=== PATIENT | female | born 1985 | race Caucasian/White ===

== ENCOUNTER 2019-11-16 08:57 | Outpatient (CLI) | payer OTHER, SELFPAY ==
[2019-11-16 09:20] LABS: Basophils Absolute Auto 0.03 K/mm3 (0.00-0.10); Basophils Percent Auto 0.4 % (0.0-1.0); Eosinophils Absolute Auto 0.04 K/mm3 (0.02-0.50); Eosinophils Percent Auto 0.6 % (1.0-6.0); Hematocrit 39.5 % (35.0-49.0); Hemoglobin 13.6 g/dL (12.0-15.0); Immature Granulocyte Absolute 0.02 K/mm3 (0.00-0.00); Immature Granulocyte Percent A 0.3 % (0.0-0.0); Lymphocytes Percent Auto 25.4 % (18.0-42.0); Mean Corpuscular HGB Conc 34.4 g/dL (32.0-36.0); Mean Corpuscular Hemoglobin 30.1 pg (27.0-31.0); Mean Corpuscular Volume 87.4 fL (78.0-102.0); Mean Platelet Volume 9.9 fl (9.2-11.8); Monocytes Absolute Auto 0.24 K/mm3 (0.10-0.90); Monocytes Percent Auto 3.6 % (2.0-11.0); Neutrophils Absolute Auto 4.7 K/mm3 (1.7-7.2); Neutrophils Percent Auto 69.7 % (50.0-70.0); Platelet Count Result 204 K/mm3 (150-420); Red Blood Count 4.52 M/mm3 (4.20-5.40); Red Cell Distribution Width 11.9 % (11.6-14.4); White Blood Count 6.7 K/mm3 (4.8-10.8)
[2019-11-16 11:05] LABS: HIV 1 P24 AG Negative (Negative); HIV 1/2 AB Negative (Negative)
[2019-11-18 11:48] LABS: Hepatitis B Surface Antigen Nonreactive (Nonreactive)
[2019-11-18 15:16] LABS: RPR Screen Non-Reactive (Non-Reactive)
[2019-11-19 03:44] LABS: CMV IgG Antibody <0.60 U/mL (<0.60)
[2019-11-19 13:37] LABS: Rubella IgG Antibody 8.89 Index (>=1.00)
== END 2019-11-16 08:58 | disposition home or self-care (01) ==
PROVIDERS: PCP Obstetrics & Gynecology; Visit Provider Obstetrics & Gynecology
DX: N92.5 Other specified irregular menstruation (principal)
CPT/HCPCS: 36415; 84702; 85025; 86592; 86644; 86703; 86747; 86762; 86787; 86850; 86900; 86901; 87086

== ENCOUNTER 2020-03-03 09:55 | Outpatient (CLI) | payer OTHER, SELFPAY ==
[2020-03-03 11:17] LABS: Basophils Absolute Auto 0.03 K/mm3 (0.00-0.10); Basophils Percent Auto 0.3 % (0.0-1.0); Eosinophils Absolute Auto 0.06 K/mm3 (0.02-0.50); Eosinophils Percent Auto 0.6 % (1.0-6.0); Hematocrit 36.4 % (35.0-49.0); Hemoglobin 12.2 g/dL (12.0-15.0); Immature Granulocyte Absolute 0.07 K/mm3 (0.00-0.00); Immature Granulocyte Percent A 0.7 % (0.0-0.0); Lymphocytes Absolute Auto 1.53 K/mm3 (1.10-4.50); Lymphocytes Percent Auto 15.9 % (18.0-42.0); Mean Corpuscular HGB Conc 33.5 g/dL (32.0-36.0); Mean Corpuscular Volume 92.4 fL (78.0-102.0); Mean Platelet Volume 9.7 fl (9.2-11.8); Monocytes Absolute Auto 0.42 K/mm3 (0.10-0.90); Monocytes Percent Auto 4.4 % (2.0-11.0); Neutrophils Absolute Auto 7.5 K/mm3 (1.7-7.2); Neutrophils Percent Auto 78.1 % (50.0-70.0); Platelet Count Result 187 K/mm3 (150-420); Red Blood Count 3.94 M/mm3 (4.20-5.40); Red Cell Distribution Width 12.1 % (11.6-14.4); White Blood Count 9.7 K/mm3 (4.8-10.8)
[2020-03-03 12:40] LABS: HIV 1 P24 AG Negative (Negative); HIV 1/2 AB Negative (Negative)
[2020-03-03 13:07] LABS: Glucose 1 Hour PP 50gm Dose 126 mg/dL (70-130)
== END 2020-03-03 09:56 | disposition home or self-care (01) ==
LOC: CHSLAB 09:58
PROVIDERS: PCP Obstetrics & Gynecology; Visit Provider Obstetrics & Gynecology
DX: Z34.02 Encounter for supervision of normal first pregnancy, second trimester (principal)
CPT/HCPCS: 36415; 82947; 85025; 86703

== ENCOUNTER 2020-05-26 17:03 | Inpatient (IN) | payer OTHER, SELFPAY ==
[2020-05-26] VITALS (8 sets, daily range): BP systolic 89–111; BP diastolic 49–72; PULSE 71–87; TEMP 36.7–36.8; BMI 27.4
[2020-05-26 17:53] LABS: Basophils Percent Auto 0.2 % (0.2-1.2); Eosinophils Percent Auto 0.4 % (0-4.4); Hematocrit 36.1 % (37.0-47.0); Hemoglobin 12.5 g/dL (12.0-15.0); Immature Granulocyte Absolute 0.05 K/mm3 (0.00-0.031); Immature Granulocyte Percent A 0.5 % (0-0.5); Lymphocytes Absolute Auto 1.43 K/mm3 (0.9-3.2); Lymphocytes Percent Auto 15.6 % (18.3-44.2); Mean Corpuscular HGB Conc 34.6 g/dl (32-36); Mean Corpuscular Hemoglobin 30.9 pg (26-34); Mean Corpuscular Volume 89.4 fl (80-100); Mean Platelet Volume 10.2 fl (7.4-10.4); Monocytes Absolute Auto 0.5 K/mm3 (0.1-0.6); Monocytes Percent Auto 5.6 % (2.6-8.5); Neutrophils Absolute Auto 7.1 K/mm3 (1.3-6.7); Neutrophils Percent Auto 77.7 % (45.5-73.1); Platelet Count Result 193 k/mm3 (150-375); Red Blood Count 4.04 M/mm3 (4.2-5.4); Red Cell Distribution Width 12.2 % (11.5-14.5); White Blood Count 9.1 K/mm3 (4.5-10.0)
[2020-05-26] MEDS: AMPICILLIN 2 GM/NS 100 ML 2 GM/100 ML BAG IVPB (18:04)
[2020-05-26] MEDS: LACTATED RINGERS 1,000 ML 125 ML IV CONT (18:04)
--- NOTE | 2020-05-26 18:11 | LDADM ---
This patient, Leigh Owusu, was admitted to Labor/Delivery/Recovery 105 on 05/26/20 at 17:03. Plans for labor, pain management and were discussed with patient. Patient/family oriented to hospital policies and general routines including ID bracelet, bed and alarms, visiting hours, pain management, procedures, bathroom and other care routines, personal items, smoking policy, room service/diet and guest tray routines, infant security routines, and visiting hours. Patient/Family are encouraged to report perceived risks to care and to ask questions if they do not understand what they are told or what they should do. See OBIX for further documentation.
--- NOTE | 2020-05-26 18:21 | WPDANESEPP ---
Anes - Eval Pre Procedure Procedure: Labor epidural Date/Time: 05/26/20 18:21 Surgeon: Ramiro Preop Diagnosis: Abd pain with contractions Pre Op Diagnosis: Induction of Labor Patient Data Age: 34 Gender: F Height: Weight: Last Vital Signs Pulse 85 05/26/20 18:20 BP 111/72 05/26/20 18:20 Allergies Allergy/AdvReac Type Severity Reaction Status Date / Time No Known Allergies Allergy Verified 05/26/20 18:14 Home Medications Medication Instructions Recorded Confirmed Type PNV cmb#95-ferrous fumarate-FA 1 tablet PO DAILY 05/04/20 05/26/20 History [] famotidine [Pepcid] 20 mg PO HS PRN 05/26/20 05/26/20 History Laboratory Tests 05/26/20 05/26/20 17:44 17:44 WBC 9.1 K/mm3 K/mm3 (4.5-10.0) RBC 4.04 M/mm3 L M/mm3 (4.2-5.4) Hgb 12.5 g/dL g/dL (12.0-15.0) Hct 36.1 % L % (37.0-47.0) MCV 89.4 fl fl (80-100) MCH 30.9 pg pg (26-34) MCHC 34.6 g/dl g/dl (32-36) RDW 12.2 % % (11.5-14.5) Plt Count 193 k/mm3 k/mm3 (150-375) MPV 10.2 fl fl (7.4-10.4) Immature Gran % (Auto) 0.5 % % (0-0.5) Neut % (Auto) 77.7 % H % (45.5-73.1) Lymph % (Auto) 15.6 % L % (18.3-44.2) Woodward % (Auto) 5.6 % % (2.6-8.5) Eos % (Auto) 0.4 % % (0-4.4) Baso % (Auto) 0.2 % % (0.2-1.2) Lymph # (Auto) 1.43 K/mm3 K/mm3 (0.9-3.2) Woodward # (Auto) 0.5 K/mm3 K/mm3 (0.1-0.6) Eos # (Auto) 0.0 K/mm3 K/mm3 (0-0.3) Baso # (Auto) 0.0 K/mm3 K/mm3 (0.0-0.1) Abs Immat Gran (auto) 0.05 K/mm3 H K/mm3 (0.00-0.031) Absolute Neuts (auto) 7.1 K/mm3 H K/mm3 (1.3-6.7) Absolute Nucleated RBC 0.0 K/mm3 K/mm3 (0.0-0.012) Nucleated RBC % 0.0 % % (0.0-0.2) RPR Pending Patient hx anesthesia problems: post op nausea/vomiting Family hx anesthesia problems: none [facility] Past Medical History Medical History (Updated 05/26/20 @ 18:23 by Jp Mike CRNA) Overweight (BMI 25.0-29.9) PONV (postoperative nausea and vomiting) and not yet delivered Family History Family History Other No pertinent family history Social History Social History Smoking status: Never smoker Second hand tobacco smoke exposure: No Substance use: never Gender identity (if verbalized by the patient): Female Spiritual care concerns: No Exam Day of Procedure 05/26/20 18:21 Patient weight: overweight Airway: Mallampati scale class 1 Neurological: alert and oriented
[2020-05-26] MEDS: DINOPROSTONE 10 MG VAG INSERT VAGINAL (18:35)
[2020-05-26] MEDS: FAMOTIDINE 20 MG/2 ML VIAL IV PUSH (18:48)
[2020-05-26] MEDS: AMPICILLIN 1 GM/NS 50 ML 1 GM/50 ML BAG IVPB (22:22)
[2020-05-27] VITALS (83 sets, daily range): BP systolic 84–114; BP diastolic 48–77; PULSE 56–95; RESP 16; TEMP 36.3–36.8; O2SAT 92–100
[2020-05-27] MEDS: AMPICILLIN 1 GM/NS 50 ML 1 GM/50 ML BAG IVPB ×2 (02:46→06:39)
[2020-05-27] MEDS: OXYTOCIN 30 UNITS/NS 500 ML 30 UNITS/500 ML BAG IV CONT (05:47)
[2020-05-27 07:34] LABS: Rapid Plasma Reagin Non-Reactive (NonReactive)
[2020-05-27] MEDS: LACTATED RINGERS 1,000 ML 125 ML IV CONT ×2 (08:12→11:58)
[2020-05-27] MEDS: ONDANSETRON INJ 4 MG/2 ML VIAL IV PUSH (11:11)
--- NOTE | 2020-05-27 11:19 | WPDHPUPDATE1 ---
History and Physical Update Update Date/Time: 05/27/20 11:19 History and Physical has been reviewed, including an updated exam of the patient. There are NO changes in the patient's condition. Risks, benefits, and alternatives have been discussed and questions answered. Patient agrees to proceed with procedure.
--- NOTE | 2020-05-27 11:19 | WPDOBADMIT ---
Obstetrics - Admit Note Admission Note: record reviewed. No pertinent additions to the history and/or any subsequent changes in the physical findings that are not consistent with the expected course of the were found. Additions to the history and/or subsequent changes in the physical findings follow. None.
--- NOTE | 2020-05-27 11:19 | PM.OBPRVD ---
OB - Delivery Note Procedure Route of delivery: Specimen: No Quantitative Blood Loss (ml): 300 Anesthesia type: Epidural Disposition: floor Narrative: Patient prepped and draped for the procedure. Maternal expulsive efforts readily delivered vertex which was suctioned of naso and oropharynx. The rest of baby was delivered cord was clamped and cut and placenta delivered spontaneously. Cervix vagina vulva were inspected no significant lacerations or tears. At this point the procedure was considered terminated. Baby Weeks of gestation at delivery: 39 Infant gender: Male Weight (pounds): 8 Weight (ounces): 5 score one minute: 9 score five minutes: 9
[2020-05-27] MEDS: OXYTOCIN 30 UNITS/NS 500 ML 30 UNITS/500 ML BAG 125 UNITS IV CONT (11:23)
[2020-05-27] MEDS: BENZOCAINE 20% AER SPR (*SP) 56 GM CAN 1 SPRAY TOPICAL (14:35)
[2020-05-27] MEDS: WITCH HAZEL 40 PADS 1 PAD TOPICAL (14:35)
--- NOTE | 2020-05-27 15:45 | PC.NURSE ---
1445 Pt admitted to room 286 with baby from labor and delivery after vaginal delivery today with Dr. Rubio. This is Mother's third baby and she is choosing to breast feed . FOB present. Couple oriented to room, staffing and procedures. Admission folder reviewed, including Mother-baby Guide. Pt's VSS and assessment WNL.
[2020-05-27] MEDS: IBUPROFEN 600 MG TABLET PO (20:50)
[2020-05-28] MEDS: IBUPROFEN 600 MG TABLET PO (03:36)
[2020-05-28 08:40] VITALS: BP 98/63; PULSE 79; RESP 18; TEMP 36.2
--- NOTE | 2020-05-28 09:29 | P.DS_ITS ---
DS: Admitting Diagnosis Admitting Diagnosis Admitting Diagnosis: OB - DS: Summary OB Procedures : None OB Procedures Intrapartum: Spontaneous Vag Delivery OB Procedures: : None Time Spent with Patient Time attestation: Total time spent providing and/or coordinating discharge services: DS: Data Data Completed and Pending Labs on day of discharge: Labs from last 24 hours 05/28/20 04:15 Hgb 12.0 Hct 36.0 L Discharge Plan Discharge Discharging Clinician: Galo Rubio Anticipated Discharge Date/Time: 05/28/20 09:29 Patient Disposition: Home, Self-Care Activity: as tolerated Diet: as tolerated Patient Instructions: Antibiotic Form Stand Alone Forms: General Discharge Information Follow-up/Referrals: Galo Rubio MD [Physician] - 3 Weeks Discharge Medications: New ibuprofen 600 mg Tablet 600 mg PO Q6H PRN (Reason: Cramping) Qty: 30 RF: 0 Continued PNV cmb#95-ferrous fumarate-FA [] 28 mg iron- 800 mcg Tablet 1 tablet PO DAILY RF: 0 famotidine [Pepcid] 20 mg Tablet 20 mg PO HS PRN (Reason: Heartburn) RF: 0 Date of admission: 05/26/20 17:03 Primary Care Provider: PHYSICIAN,CHEMISTRY PHYSICS TEACHER Admitting Provider: Galo Rubio Attending physician on admission: Galo Rubio Condition: Stable
--- NOTE | 2020-05-28 11:23 | WPDANLDPN2 ---
Anes-Prog Note L&D Date/Time: 05/28/20 11:23 Comfortable throughout: labor and delivery Neuraxial method: epidural Epidural/Spinal procedure site: clean & non-tender Neuro status: Neuro function grossly intact. Cardiovascular status: normal Respiratory status: normal Airway patency: baseline Mental status: baseline Post-Op hydration status: normal Vital Signs: Last Vital Signs Temp 36.7 C 05/27/20 20:00 Pulse 75 05/27/20 20:00 Resp 16 05/27/20 20:00 BP 94/59 L 05/27/20 20:00 Pulse Ox 97 05/27/20 20:00 Pain score (VAS): 0/10 Patient feedback: Patient satisfied with anesthetic care.
[2020-05-30 08:39] VITALS: BP 111/79; PULSE 77; RESP 16; TEMP 36.8; O2SAT 97
== END 2020-05-28 12:45 | disposition home or self-care (01) | DRG 807 ==
LOC: ANHLDR 05-27 10:43 → ANHOB2 05-27 14:51
PROVIDERS: Admitting Provider Obstetrics & Gynecology; Visit Provider Obstetrics & Gynecology
DX: O99.824 Streptococcus B carrier state complicating childbirth (principal); Z37.0 Single live birth; Z3A.39 39 weeks gestation of pregnancy
CPT/HCPCS: 36415; 85014; 85018; 85025; 86592; 86850; 86900; 86901; A9270; J0290; J2405; J2590; J2795; J7120

== ENCOUNTER 2023-10-03 18:52 | Emergency (ER) | payer OTHER, SELFPAY ==
--- NOTE | 2023-10-03 19:01 | ED.GENADULT ---
HPI - General Adult General Chief complaint: Upper Respiratory Infection Stated complaint: SORE THROAT Source: patient, RN notes reviewed and old records reviewed Mode of arrival: ambulatory Limitations: no limitations History of Present Illness HPI narrative: 38-year-old female presents to [facility] with complaints this dry cough, congestion, sore throat, dyspnea with exertion, myalgia, fatigue this started this slightly on Saturday and worsened on Saturday. Patient taking [id number] medications with no relief. Patient denies chest pain, dizziness, weakness, vomiting. Related Data Allergies Allergy/AdvReac Type Severity Reaction Status Date / Time No Known Allergies Allergy Verified 10/03/23 19:05 Review of Systems Constitutional: Constitutional: Reports no additional constitutional complaints, Reports body ache(s), Denies chills, Reports fatigue, Denies fever(s) and Denies headache(s) Eyes: Eyes: Reports no additional eye complaints and Denies blurry vision ENT: Reports system reviewed and no additional complaints, except as documented, Denies vertigo, Denies dizziness, Denies ear discharge, Reports otalgia, Denies facial pain, Denies headache(s), Reports nasal congestion, Denies nasal discharge, Denies sinus pain, Reports sinus pressure and Reports sore throat Cardiovascular: Cardiovascular: Reports no additional cardiovascular complaints, Denies chest pain, Denies chest pain at rest, Denies rapid heart rate and Reports dyspnea Respiratory: Respiratory: Reports no additional respiratory complaints, Reports chest congestion, Reports cough, Denies pain on inspiration, Denies pain with cough and Reports dyspnea Gastrointestinal: Gastrointestinal: Denies abdominal pain, Denies diarrhea, Denies nausea and Denies vomiting Integumentary/Breasts: Skin/Breast: Denies rash Neurologic: Reports system reviewed and no additional complaints, except as documented, Denies vertigo, Denies dizziness and Denies headache(s) Endocrine: Endocrine: Denies fatigue [facility] Past Medical History Medical History Encounter for IUD insertion 06/28/20 Mirena insertion Gestational diabetes Mastitis x3 Overweight (BMI 25.0-29.9) PONV (postoperative nausea and vomiting) and not yet delivered Surgical History Surgical History History of tonsillectomy and adenoidectomy (~1995) Family History Family History Grandparent Malignant neoplasm of prostate paternal grandfather Other No pertinent family history Social History Social History Smoking status: Never smoker Second hand tobacco smoke exposure: No Alcohol intake: current Alcohol use details: 1-2 month Substance use: never Substance use type: does not use Lack of Transportation: No Lack of Food: Never True Current Housing: I Have Housing Concerned About Future Housing: No Difficulty Paying Gas/Electric Bills: No Difficulty Paying for Meds: No Currently Unemployed: No Education: Associate Degree Difficulty w/ Childcare or Family Care: No Living arrangements: other Additional living arrangements comments: Occupation/Education: other Additional occupation/education comments: stay at home mom Gender identity (if verbalized by the patient): Female Sexual Orientation (if Verbalized by the Patient): Straight or Heterosexual Spiritual care concerns: No Comments At the time of my signature, I reviewed and agree with the nursing past medical, surgical, social, and family history. There is no relevant family history pertinent to the patient complaint. Exam Const: General: cooperative, healthy appearing, no acute distress and well nourished Nutritional Appearance: well nourished Orientation/conscio
[2023-10-03 19:10] VITALS: BP 109/83; PULSE 61; RESP 16; TEMP 36.5; O2SAT 99
[2023-10-03 19:15] VITALS: BP 109/83; PULSE 61; RESP 16; TEMP 36.5; O2SAT 99
== END 2023-10-03 19:28 | disposition home or self-care (01) ==
PROVIDERS: Emergency Provider Registered Nurse
DX: B34.9 Viral infection, unspecified (principal); H65.03 Acute serous otitis media, bilateral; H10.32 Unspecified acute conjunctivitis, left eye
CPT/HCPCS: 87081; 87880; 99213; G0463